=== PATIENT | female | born 1980 | race Caucasian/White ===

== ENCOUNTER 2017-12-05 12:57 | Emergency (ER) | payer OTHER ==
[2017-12-05 14:39] LABS: ABS Basophils 0 10^3/ul (0-0.2); ABS Eosinophils 0 10^3/ul (0-0.6); ABS Lymphocytes 1.2 10^3/ul (1.0-4.8); ABS Monocytes 0.8 10^3/ul (0-0.8); ABS Neutrophils 7.2 10^3/ul (1.5-7.7); ABS Nucleated RBC 0 10^3/ul; Eosinophil % 0.5 % (0-6); Hematocrit 41 % (35-47); Hemoglobin 13.6 g/dl (12.0-16.0); Lymphocyte % 13.4 % (25-47); Mean Corpuscular HGB Conc 34 g/dl (31-36); Mean Corpuscular Hemoglobin 28 pg (27-31); Mean Corpuscular Volume 82 fL (80-97); Mean Platelet Volume 9 um3 (7.4-10.4); Nucleated Red Blood Cells % 0; Platelet Count 208 10^3/ul (150-450); Red Blood Count 4.93 10^6/ul (4.0-5.4); Red Cell Distribution Width 14 % (10.5-15); White Blood Count 9.3 10^3/ul (3.5-10.8)
[2017-12-05 14:56] LABS: EGFR Non-African American 60.3 (>60)
[2017-12-05 15:24] LABS: Urine Appearance Cloudy; Urine Blood 3+ (Negative); Urine Color Amber; Urine Ketones Trace (Negative); Urine Protein 2+(100 mg/dL) (Negative); Urine Specific Gravity 1.044 (1.010-1.030); Urine Urobilinogen Negative (Negative)
--- NOTE | 2017-12-05 16:07 | RAD ---
Indication: RIGHT adnexal tenderness. Vaginal bleeding. Comparison: May 12, 2008 Technique: Transvaginal technique pelvic ultrasound. Report: Unremarkable 7.2 x 4.9 x 6.1 cm anteverted uterus with 5.5 mm endometrium. Negative for free pelvic fluid. 2.8 x 2.4 x 2.9 cm RIGHT ovary with documented vascular flow is remarkable for small follicles only. 3.4 x 3.0 x 3.0 cm LEFT ovary with documented vascular flow is remarkable for a 2.3 x 1.2 x 2.5 cm well-circumscribed cyst with a reticulated internal architecture pattern devoid of intrinsic vascularity most consistent with a hemorrhagic cyst. No visualized extra ovarian adnexal region lesions evident. IMPRESSION: 1. No RIGHT adnexal region lesions evident. 2. Low suspicion 2.5 cm maximum dimension hemorrhagic cyst of the LEFT ovary. 3. Normal endometrium thickness. 4. Negative for free fluid.
--- NOTE | 2017-12-05 16:15 | RAD ---
Indication: RIGHT upper quadrant pain. Comparison: March 23, 2014 ultrasound. Technique: RIGHT upper quadrant ultrasound. Report: Appropriate direction flow documented in the portal and hepatic veins. 22.7 cm liver is increased in echogenicity. Negative for focal hepatic lesions. Negative for intrahepatic biliary dilatation. 3.2 mm common bile duct. Adequately distended gallbladder with normal 2.4 mm wall is without pathologic finding. Negative for sonographic Howard's sign. Unremarkable visualized pancreas. Negative for ascites. 13.3 x 7.0 x 4.8 cm RIGHT kidney is unremarkable. IMPRESSION: 1. No evidence for gallbladder pathology. 2. Enlarged liver with fatty infiltration.
[2017-12-05] MEDS ORDERED: Ketorolac INJ* 30 MG/ML 1 ML VIAL IV PUSH ONE (16:34)
[2017-12-05] MEDS ORDERED: Morphine INJ* 4 MG/ML 1 ML CARPUJECT IV ONE (16:34)
--- NOTE | 2017-12-05 17:20 | RAD ---
INDICATION: RIGHT flank pain. Hematuria. Nausea. COMPARISON: Pelvic ultrasound of the same date. TECHNIQUE: Multidetector CT images were obtained from the lung bases to the ischial tuberosities. Evaluation of the viscera is limited without IV contrast. Multiplanar reformation. REPORT: Unremarkable visualized inferior thorax. 24 cm cephalocaudal liver is diffusely decreased in density consistent with fatty infiltration. No CT abnormality of the gallbladder. Negative for biliary dilatation. Unremarkable pancreas. 20 cm cephalocaudal enlarged spleen. Negative for CT abnormality of the upper GI, small bowel, infra cecal appendix. Mild colonic diverticulosis without findings of diverticulitis. Negative for ascites or free air. Small fat-containing umbilical hernia without inflammatory change. Normal adrenal glands. Unremarkable unenhanced kidneys and nondilated ureters. Largely decompressed urinary bladder limiting assessment without gross abnormality. Unremarkable CT appearance of the anteverted uterus and adnexal regions. Low suspicion calcification at the RIGHT pelvis. Negative for lymphadenopathy. Normal diameter abdominal aorta and iliac arteries. Physiologic distention of the IVC. Negative for suspicious osseous lesions. IMPRESSION: 1. Hepatomegaly with hepatosteatosis. 2. Splenomegaly. 3. Negative for obstructive uropathy. 4. Mild colonic diverticulosis without findings of diverticulitis.
[2017-12-05] MEDS ORDERED: Sulfamethox/Trimethoprim DS 800/160* TAB PO ONE (17:37)
[2017-12-05] MEDS: oxyCODONE/Acetamin 5/325 MG* TAB PO ONE ×2 (17:45→17:46)
[2017-12-05 18:28] VITALS: BP 147/86
--- NOTE | 2017-12-05 22:24 | ED ---
Cathy Burgos Julia, scribed for Gucci Salazar MD on 12/05/17 at 1412 . Abdominal Pain/Female - HPI Summary HPI Summary: This patient is a 36 year old F presenting to [facility] accompanied by with a chief complaint of RLQ abdominal pain since 13:00. The patient rates the pain 5/10 in severity. Patient reports fatigue, fever, nausea, sore throat, and vaginal bleeding characterized as spotting. Patient denies loose stool, vomiting, diarrhea, or urinary symptoms. Patient reports a fever of 102.7 taken at 10:00 at home this morning. - History of Current Complaint Chief Complaint: EDAbdPain Stated Complaint: ABD PAIN Time Seen by Provider: 12/05/17 14:06 Hx Obtained From: Patient Onset/Duration: Lasting Hours Timing: Constant Pain Intensity: 5 Pain Scale Used: 0-10 Numeric Location: Discrete At: RLQ Associated Signs and Symptoms: Positive: Other: - fatigue, fever, nausea, sore throat, and vaginal bleeding (spotting) Allergies/Adverse Reactions: Allergies Allergy/AdvReac Type Severity Reaction Status Date / Time Diphenhydramine Allergy Itching Verified 03/23/14 10:38 [From Benadryl] PMH/Surg Hx/FS Hx/Imm Hx Cardiovascular History: Reports: Hx Hypertension - with previous pregnancies History: Reports: Other Problems/Disorders - endometriosis Musculoskeletal History: Denies: Hx Rheumatoid Arthritis, Hx Osteoporosis - Immunization History Date of Tetanus Vaccine: up to date Infectious Disease History: No Infectious Disease History: Denies: Traveled Outside the [place] in Last 30 Days - Family History Known Family History: Positive: Cardiac Disease - maternal Negative: Diabetes - Social History Alcohol Use: None Hx Substance Use: No Substance Use Type: Reports: None Hx Tobacco Use: No Smoking Status (MU): Never Smoked Tobacco Have You Smoked in the Last Year: No Review of Systems Positive: Fever, Fatigue. Negative: Chills Negative: Erythema Positive: Sore Throat Negative: Chest Pain Negative: Shortness Of Breath, Cough Positive: Abdominal Pain, Nausea, Other - loose stool. Negative: Vomiting, Diarrhea Positive: other - vaginal bleeding ("spotting"). Negative: dysuria, hematuria Negative: Myalgia, Edema Negative: Rash Neurological: Other - negative - dizziness All Other Systems Reviewed And Are Negative: Yes Physical Exam - Summary Physical Exam Summary: Constitutional: Well-developed, Well-nourished, Alert. (-) Distressed Skin: Warm, Dry HENT: Normocephalic; Atraumatic Eyes: Conjunctiva normal Neck: Musculoskeletal ROM normal neck. (-) JVD, (-) Stridor, (-) Tracheal deviation Cardio: Rhythm regular, rate normal, Heart sounds normal; Intact distal pulses; The pedal pulses are 2+ and symmetric. Radial pulses are 2+ and symmetric. (-) Murmur Pulmonary/Chest wall: Effort normal. (-) Respiratory distress, (-) Wheezes, (-) Rales Abd: Soft, RLQ and RUQ Tenderness, (-) Distension, (-) Guarding, (-) Rebound Musculoskeletal: (-) Edema Lymph: (-) Cervical adenopathy Neuro: Alert, Oriented x3 Psych: Mood and affect Normal Triage Information Reviewed: Yes Vital Signs On Initial Exam: Initial Vitals Temp Pulse Resp BP Pulse Ox 97.5 F 117 20 152/114 95 12/05/17 12:59 12/05/17 12:59 12/05/17 12:59 12/05/17 12:59 12/05/17 12:59 Vital Signs Reviewed: Yes - Whigham Coma Scale Coma Scale Total: 15 Procedures - Procedure Summary Procedure Summary: Exam reveals no cervical motion, no concern for ovarian torsion, no adnexal tenderness. Arenza was present for this exam. Diagnostics - Vital Signs Vital Signs Temp Pulse Resp BP Pulse Ox 12/05/17 12:59 97.5 F 117 20 152/114 95 - Laboratory Result Diagrams: 12/05/17 14:30 12/05/17 14:30 Lab Statement: Any lab studies that have been ordered have been reviewed, and results considered in the medical decision making process. - CT A/P CT Interpretation Completed By: Radiologist - 1. Hepatomegaly with hepatosteatosis. 2. Splenomegaly. 3. Negative for obstructive uropathy. 4. Mild colonic diverticulosis without findings of diverticulitis. ED Physician has reviewed this report. - Additional Comments Diagnostic Additional Comments: Gallbladder US reveals: 1. No evidence for gallbladder pathology. 2. Enlarged liver with fatty infiltration. ED Physician has reviewed this report. Transvaginal US reveals 1. No RIGHT adnexal region lesions evident. 2. Low suspicion 2.5 cm maximum dimension hemorrhagic cyst of the LEFT ovary. 3. Normal endometrium thickness. 4. Negative for free fluid. ED Physician has reviewed this report. Re-Evaluation - Re-Evaluation 1st Re-Evaluation Time: 16:34 Change: Unchanged Comment: pain is still an 8/10 in intensity Abdominal Pain Fem Course/Dx - Diagnoses Provider Diagnoses: UTI (urinary tract infection) Discharge - Discharge Plan Condition: Stable Disposition: HOME Prescriptions: Naproxen TAB* [Naprosyn 250 mg TAB*] 500 mg PO Q8H PRN #15 tab PRN Reason: Pain - Moderate To Severe Sulfamethox/Trimethoprim DS* [Bactrim DS 800/160 TAB*] 1 tab PO BID #14 tab traMADol TAB* [Ultram*] 25 mg PO Q6HR PRN #15 tab MDD 4 PRN Reason: Pain - Moderate To Severe Patient Education Materials: Urinary Tract Infection in Women (ED) Referrals: Rubina Long NP [Primary Care Provider] - Additional Instructions: Patient will be discharged with prescription for Naproxen and Sulfamethox and instructed to follow up with PCP. The patient is agreeable with this plan. RETURN TO THE EMERGENCY DEPARTMENT FOR CHANGING OR WORSENING SYMPTOMS. The documentation as recorded by the Cathy serrano Julia accurately reflects the service I personally performed and the decisions made by , Gucci Salazar MD.
== END 2017-12-05 18:27 | disposition home or self-care (01) ==
LOC: ED 12:57
DX: N39.0 Urinary tract infection, site not specified (principal); N93.9 Abnormal uterine and vaginal bleeding, unspecified; R53.83 Other fatigue; R50.9 Fever, unspecified; R11.0 Nausea; J02.9 Acute pharyngitis, unspecified
CPT/HCPCS: 36415; 74176; 76705; 76830; 80053; 81003; 81015; 83605; 83690; 84702; 85025; 86140; 86308; 87480; 87491; 87510; 87591; 87661; 96374; 96375; 99283; A9270-GY; J1885

== ENCOUNTER 2017-12-06 09:46 | Emergency (ER) | payer OTHER ==
--- NOTE | 2017-12-06 10:59 | ED ---
Influenza-Like Illness - HPI Summary HPI Summary: 36 female presents to ED with complaints of sore throat, fever, fatigue, lethargy, and vomiting that has been ongoing for the past 2-3 days. Patient states she has been unable to eat and drink without feeling nauseous or vomiting. Has had 2 episodes of vomiting, one last night and one this morning. is concerned for dehydration. Fever was 104-101F when taken temporally at home [facility]. Given 600mg of ibuprofen and 1000mg of tylenol around 730am and fever improved, is 98.3 while in ED. Has taken her bactrim for UTI. Has not taken tramadol. Patient states she is not in any pain currently other than her sore throat and some body aches. Abdominal discomfort/"spasms" comes and goes and worsens with eating at times, similar to yesterdays ED visit complaints. States she did have CMV a few months back. Also had exposure to a cousin with mono. Has not had a bowel movement in last 3 days, did have loose stool in beginning of the week. Denies blood and recent antibiotic use, besides yesterdays bactrim that was prescribed. No other complaints. PMHx includes HTN and endometriosis. Denies cough, SOB, trouble breathing and chest pain. - History of Current Complaint Chief Complaint: EDAbdPain Time Seen by Provider: 12/06/17 10:25 Hx Obtained From: Patient, Family/Smeller - Onset/Duration: Sudden Onset, Lasting Days, Still Present Severity: Moderate Associated Signs & Symptoms: Fever, Myalgia, Sore Throat, Vomiting - Allergy/Home Medications Allergies/Adverse Reactions: Allergies Allergy/AdvReac Type Severity Reaction Status Date / Time Diphenhydramine Allergy Itching Verified 03/23/14 10:38 [From Grabiel] PMH/Surg Hx/FS Hx/Imm Hx Endocrine/Hematology History: Denies: Hx Diabetes Cardiovascular History: Reports: Hx Hypertension - with previous pregnancies History: Reports: Other Problems/Disorders - endometriosis Musculoskeletal History: Denies: Hx Rheumatoid Arthritis, Hx Osteoporosis - Surgical History Surgery Procedure, Year, and Place: x 3 - Immunization History Date of Tetanus Vaccine: up to date Immunizations Up to Date: Yes Infectious Disease History: No Infectious Disease History: Denies: Traveled Outside the [place] in Last 30 Days - Family History Known Family History: Positive: Cardiac Disease - maternal Negative: Diabetes - Social History Alcohol Use: None Hx Substance Use: No Substance Use Type: Reports: None Hx Tobacco Use: No Smoking Status (MU): Never Smoked Tobacco Have You Smoked in the Last Year: No Review of Systems Positive: Fever, Chills, Fatigue Positive: Sore Throat Cardiovascular: Negative Respiratory: Negative Positive: Abdominal Pain, Vomiting, Nausea Skin: Negative Positive: Weakness - lethargic / fatigued All Other Systems Reviewed And Are Negative: Yes Physical Exam Triage Information Reviewed: Yes Vital Signs On Initial Exam: Initial Vitals Temp Pulse Resp BP Pulse Ox 98.3 F 100 16 160/83 97 12/06/17 09:59 12/06/17 09:59 12/06/17 09:59 12/06/17 09:59 12/06/17 09:59 elevated BP noted, patient just took meds this am. asymptomatic. follow up with PCP for recheck in 2 weeks due to elevated reading. currently afebrile. Vital Signs Reviewed: Yes Appearance: Positive: No Pain Distress, Well-Nourished, Ill-Appearing Skin: Positive: Warm, Skin Color Reflects Adequate Perfusion, Dry. Negative: Cold, Cyanosis @, Pale, Erythema @ Head/Face: Positive: Normal Head/Face Inspection Eyes: Positive: Conjunctiva Clear ENT: Positive: Hearing grossly normal, Pharyngeal erythema - very erythematous, Nasal congestion, TMs normal, Tonsillar swelling - b/l, Tonsillar exudate - b/l , Uvula midline - no sign of peritonsillar abscess, patent airway Dental: Positive: Cervical Lymphadenopathy. Negative: Percussion Tenderness @ Neck: Positive: Supple, Nontender, No Lymphadenopathy Respiratory/Lung Sounds: Positive: Clear to Auscultation, Breath Sounds Present. Negative: Rales, Rhonchi, Wheezes Cardiovascular: Positive: Normal, RRR, Pulses are Symmetrical in both Upper and Lower Extremities. Negative: Murmur, Rub Abdomen Description: Positive: No Organomegaly, Soft, Other: - "discomfort" on palpation or LUQ/epigastric area. diffuse adipose tissue making exam difficult. Negative: Bruit, CVA Tenderness (R), CVA Tenderness (L), Distended, Guarding, McBurney's Point Tenderness, Peritoneal Signs, Pulsatile Mass Bowel Sounds: Positive: Present Pelvic Exam: Positive: other - preformed yesterday, no changes per patient, culture results pending Musculoskeletal: Positive: Normal, Strength/ROM Intact. Negative: Pain @ Neurological: Positive: Normal, Sensory/Motor Intact, Alert, Oriented to Person Place, Time, CN Intact II-III, Reflexes Intact, NV Bundle Intact Distally, Normal Gait - [place] Coma Scale Best Eye Response: 4 - Spontaneous Best Motor Response: 6 - Obeys Commands Best Verbal Response: 5 - Oriented Diagnostics - Vital Signs Vital Signs Temp Pulse Resp BP Pulse Ox 12/06/17 09:59 98.3 F 100 16 160/83 97 - Laboratory Lab Statement: Any lab studies that have been ordered have been reviewed, and results considered in the medical decision making process. Re-Evaluation - Re-Evaluation First Eval Re-Evaluation Time: 12:00 Change: Improved - feeling better after fluids, just tired and experiencing throat pain. updated on results of tests. patient still afebrile and normal vitals. agrees and understands plan. Flu Symptom Course/Dx - Course Course Of Treatment: influenza and mono spot obtained and negative. CT, US and labs preformed yesterday. UA, and vaginal cultures also obtained. Was diagnosed with UTI yesterday. All labs and imaging studies <24 hours ago were unremarkable. Patient taken appropriate meds and is afebrile with normal vitals while in ED. Denied any pain other than diffuse body aches, sore throat, fatigue and feeling of illness. was concerned for dehydration as patient was vomiting and has not been eating/drinking, patient give fluids while in ED. Appears to be suffering from pharyngitis due to PE findings and complaints. Will treat with amoxicillin, given first dose while in ED. Patient had negative strep culture 3 days ago when at [facility] and it was negative. Will send home with amox and zofran. encouraged fluids, rest, ibuprofen/tylenol and follow up. Aware of worsening signs and symptoms to watch out for and return if occur. Held off on repeat labs due to obtaining all labs and imaging <24 hours ago and symptoms consisting of fever, sore throat and body aches. Patient was in agreement with this plan and understood. NO other concerns at this time. Pending culture results obtained yesterday. no fever while in ED. normal vitals other than elevated BP that was encouraged follow up PCP for recheck already diagnosed HTN hasn't taken meds today. - Diagnoses Differential Diagnosis/HQI/PQRI: Positive: Influenza, Other - mono, CMV, abdominal pain, UTI, fever, pharyngitis, tonsillitis Provider Diagnoses: Fever, Tonsillitis with exudate, Pharyngitis Discharge - Discharge Plan Condition: Stable Disposition: HOME Prescriptions: Amoxicillin PO (*) [Amoxicillin 500 MG CAP*] 500 mg PO Q12H #19 cap Ondansetron ODT TAB* [Zofran 4 MG Odt TAB*] 4 mg PO Q6H PRN #10 tab.odt PRN Reason: Nausea Patient Education Materials: Pharyngitis (ED), Fever in Adults (ED), Tonsillitis (ED) Referrals: Rubina Long NP [Primary Care Provider] - Additional Instructions: Take prescribed antibiotic in addition to other medications as directed. Zofran for nausea. Salt water gargles. Keep good oral hygiene. Recommend refraining from sharing drinks. Chloraseptic spray to help soothe sore throat. Increase fluids and stick to a bland easy diet. Any new or worsening symptoms please seek medical attention promptly and return. Follow up with PCP within 2 days to ensure improvement.
[2017-12-06] MEDS: NS 0.9% 1000 ML* 2,000 ML IV ONE (11:15)
[2017-12-06] MEDS ORDERED: Amoxicillin PO (*) 500 MG CAP PO ONE (12:22)
[2017-12-06 13:26] VITALS: BP 168/89
== END 2017-12-06 13:25 | disposition home or self-care (01) ==
LOC: ED 09:46
DX: R50.9 Fever, unspecified (principal); J03.90 Acute tonsillitis, unspecified; R11.10 Vomiting, unspecified; R53.83 Other fatigue
CPT/HCPCS: 87502; 96360; 99282; A9270-GY

== ENCOUNTER 2020-02-06 13:25 | Emergency (ER) | payer MEDICAID, OTHER ==
[2020-02-06] MEDS ORDERED: Lidocaine PATCH 5%* 1 PATCH TRANSDERM ONE (13:35)
[2020-02-06] MEDS ORDERED: Cyclobenzaprine TAB* 10 MG PO ONE (13:35)
[2020-02-06] MEDS ORDERED: Ketorolac *IM* INJ* 60 MG/2 ML VIAL IM ONE (13:35)
--- NOTE | 2020-02-06 13:42 | ED ---
Back Pain - HPI Summary HPI Summary: This pt is a 39 Y/O F presenting to [facility] with a CC of low back pain that is rated a 10/10. She states that she tool APAP for her pain and did not take any narcotics. She states that she is more fatigued than usual. She denies any radiating pain, abdominal pain, headaches, SOB, N/V, and CP. She states that she felt searing pain while washing her hair and used Icy Hot immediately after the incident. She states that she went to lie down afterwards. She states that the pain is primarily located on her spine. She has no aggravating or alleviating factors. She has a PMHx of back spasms. - History of Current Complaint Chief Complaint: EDBackInjuryPain Stated Complaint: BACK PAIN PER EMS Time Seen by Provider: 02/06/20 13:34 Hx Obtained From: Patient Onset/Duration: Sudden Onset Onset/Duration: Still Present Timing: Constant Back Pain Location: Is Discrete @ - low back Severity Initially: Severe Severity Currently: Severe Pain Intensity: 10 Pain Scale Used: 0-10 Numeric Character: Burning Aggravating Symptom(s): Nothing Alleviating Symptom(s): Nothing Associated Signs And Symptoms: Positive: Negative - radiating pain, headaches, SOB, N/V, and CP. Negative: Abdominal Pain - Allergies/Home Medications Allergies/Adverse Reactions: Allergies Allergy/AdvReac Type Severity Reaction Status Date / Time diphenhydramine Allergy Itching Verified 02/06/20 17:00 [From Benradhika] Home Medications: Home Medications Vit W/ Ferrous Fumara [] 1 tab PO DAILY 03/23/14 [History Confirmed 03/23/14] Naproxen TAB* [Naprosyn 250 mg TAB*] 500 mg PO Q8H PRN #15 tab 12/05/17 [Rx] Sulfamethox/Trimethoprim DS* [Bactrim DS 800/160 TAB*] 1 tab PO BID #14 tab 04/17 [Rx] traMADol TAB* [Ultram*] 25 mg PO Q6HR PRN #15 tab MDD 4 12/05/17 [Rx] Amoxicillin PO (*) [Amoxicillin 500 MG CAP*] 500 mg PO Q12H #19 cap 12/06/17 [Rx ] Ondansetron ODT TAB* [Zofran 4 MG Odt TAB*] 4 mg PO Q6H PRN #10 tab.odt [Rx] Cyclobenzaprine TAB* [Flexeril 10 MG TAB*] 10 mg PO TID PRN #15 tab 02/06/20 [Rx ] Lidocaine PATCH 5%* [Lidoderm 5% Patch*] 1 patch TRANSDERM DAILY #14 patch 02/05 [Rx] predniSONE [Prednisone 20 MG TAB] 40 mg PO DAILY WITH MEAL #10 tablet 02/06/20 [ Rx] PMH/Surg Hx/FS Hx/Imm Hx Previously Healthy: Yes Endocrine/Hematology History: Denies: Hx Diabetes Cardiovascular History: Reports: Hx Hypertension - with previous pregnancies History: Reports: Other Problems/Disorders - endometriosis Musculoskeletal History: Denies: Hx Rheumatoid Arthritis, Hx Osteoporosis - Cancer History Hx Chemotherapy: No Hx Radiation Therapy: No - Surgical History Surgical History: Yes Surgery Procedure, Year, and Place: x 3 - Immunization History Date of Tetanus Vaccine: up to date Immunizations Up to Date: Yes Infectious Disease History: No Infectious Disease History: Denies: Traveled Outside the [place] in Last 30 Days - Family History Known Family History: Positive: Cardiac Disease - maternal Negative: Diabetes - Social History Occupation: Employed Full-time Lives: With Family Alcohol Use: None Hx Substance Use: No Substance Use Type: Reports: None Hx Tobacco Use: No Smoking Status (MU): Never Smoked Tobacco Have You Smoked in the Last Year: No Review of Systems Negative: Chest Pain Negative: Shortness Of Breath Negative: Abdominal Pain, Vomiting, Nausea Musculoskeletal: Other - low back pain Negative: Headache All Other Systems Reviewed And Are Negative: Yes Physical Exam - Summary Physical Exam Summary: VITAL SIGNS: Reviewed. GENERAL: Patient is a well-developed and morbidly obese woman who is lying comfortable in the stretcher. Patient is not in any acute respiratory distress. HEAD AND FACE: No signs of trauma. No ecchymosis, hematomas or skull depressions. No sinus tenderness. EYES: PERRLA, EOMI x 2, No injected conjunctiva, no nystagmus. EARS: Hearing grossly intact. Ear canals and tympanic membranes are within normal limits. MOUTH: Oropharynx within normal limits. NECK: Supple, trachea is midline, no adenopathy, no JVD, no carotid bruit, no c- spine tenderness, neck with full ROM. CHEST: Symmetric, no tenderness at palpation. LUNGS: Clear to auscultation bilaterally. No wheezing or crackles. CVS: Regular rate and rhythm, S1 and S2 present, no murmurs or gallops appreciated. ABDOMEN: Soft, non-tender. No signs of distention. No rebound, no guarding, and no masses palpated. Bowel sounds are normal. EXTREMITIES: FROM in all major joints, no edema, no cyanosis or clubbing. NEURO: Alert and oriented x 3. No acute neurological deficits. Speech is normal and follows commands. SKIN: Dry and warm. BACK: Tenderness to bilateral SI joints and midline. Triage Information Reviewed: Yes Vital Signs On Initial Exam: Initial Vitals Temp Pulse Resp BP Pulse Ox 98.2 F 98 16 151/83 100 02/06/20 13:30 02/06/20 13:30 02/06/20 13:30 02/06/20 13:30 02/06/20 13:30 Vital Signs Reviewed: Yes Procedures - Sedation Patient Received Moderate/Deep Sedation with Procedure: No Diagnostics - Vital Signs Vital Signs Temp Pulse Resp BP Pulse Ox 02/06/20 13:30 98.2 F 98 16 151/83 100 - Laboratory Lab Statement: Any lab studies that have been ordered have been reviewed, and results considered in the medical decision making process. Re-Evaluation - Re-Evaluation First Eval Re-Evaluation Time: 15:41 Change: Unchanged Comment: Pt states that she is still in pain. A back X-Ray will be ordered. Back Pain Course/Dx - Course Course Of Treatment: This pt is a 39 Y/O F presenting to [facility] with a CC of low back pain that is rated a 10/10. She states that she tool APAP for her pain and did not take any narcotics. She states that she is more fatigued than usual. She denies any radiating pain, abdominal pain, headaches, SOB, N/V, and CP. She states that she was washing her hair when she felt the pain. Her PE found that she has Tenderness to bilateral SI joints and midline. X-Ray: 1. Mild multilevel spondylosis as above. She will be discharged home with a Dx of low back strain - Diagnoses Provider Diagnoses: Low back strain Discharge ED - Sign-Out/Discharge Documenting (check all that apply): Patient Departure - discharge - Discharge Plan Condition: Good Disposition: HOME Prescriptions: Cyclobenzaprine TAB* [Flexeril 10 MG TAB*] 10 mg PO TID PRN #15 tab PRN Reason: Spasms - Back Lidocaine PATCH 5%* [Lidoderm 5% Patch*] 1 patch TRANSDERM DAILY #14 patch predniSONE [Prednisone 20 MG TAB] 40 mg PO DAILY WITH MEAL #10 tablet Patient Education Materials: Low Back Strain (ED), Chronic Back Pain (DC), Lower Back Exercises (ED) Forms: *Work Release Referrals: Rubina Long NP [Primary Care Provider] - 2 Days Additional Instructions: PLEASE FOLLOW UP WITH YOUR PRIMARY CARE PROVIDER IN THE NEXT 1-3 DAYS AND RETURN TO THE EMERGENCY DEPARTMENT FOR ANY NEW OR WORSENING SYMPTOMS. Please take the medications as directed and for the required time. - Billing Disposition and Condition Condition: GOOD Disposition: Home - Attestation Statements Document Initiated by Kayla: Yes Documenting Scribe: Keyur Mehta Provider For Whom Kayla is Documenting (Include Credential): Mic Cassidy MD Scribe Attestation: Keyur Burgos, scribed for Mic Cassidy MD on 02/06/20 at 1733. Scribe Documentation Reviewed: Yes Provider Attestation: The documentation as recorded by the Keyur serrano accurately reflects the service I personally performed and the decisions made by , Mic Cassidy MD Status of Kayla Document: Viewed
--- OUTSIDE RECORDS SUMMARY | 2020-02-06 13:43 | XMS REPORT | Continuity of Care Document ---
:1980 External Reference #:[id number] Author Name Rubina Long N.Augusto. (transmitted by agent of provider Shelbi Steinberg) Address [address], [place] [address] Care Team Providers Name Role Phone Mikaela Wilson MD - Internal Care Team Information Esthetician/Skin Therapist Medicine Problems Active Problems Provider Date Essential hypertension Rubina Long, N.P. Onset: 09/01/2015 Hyperlipidemia Rubina Long, N.P. Onset: 09/27/2011 Morbid obesity Rubina Long, N.P. Onset: 09/27/2011 Social History Type Date Description Comments Sex Unknown ETOH Use Currently consumes 0 - 1 per week alcohol Tobacco Use Start: Unknown End: Patient is a former Smoked rarely as Unknown smoker teenager Smoking Status Reviewed: 01/27/20 Patient is a former Smoked rarely as smoker teenager Exercise Exercises regularly 2 - 3 days - Walks Type/Frequency Allergies, Adverse Reactions, Alerts Active Allergies Reaction Severity Comments Date Benadryl 08/09/2010 Medications Active Medications SIG Qnty Indications Ordering Date Provider Ranitidine HCL 1 by mouth once a 180caps K21.9 Rubina Varn, 150mg Capsules day N.P. 9 Hydrochlorothiazide 1 by mouth every 90tabs R60.0 Rubina Varn, 25mg day N.P. 9 Tablets Loratadine take 1 tablet by 90tabs J30.9 Rubina Varn, 10mg Tablets mouth every day N.P. 8 as needed Nystatin apply twice daily 90gm L30.4 Rubina Skipn, 733293Rftl/GM Powder until rash clears N.P. 8 Breo Ellipta inhale 1 puff by 3units J45.30 Rubina Varn, 200-25mcg/Inh mouth every day N.P. 8 Aerosol Ramipril take 2 capsules 180caps I10 Rubina Valdiviaclara, 10mg Capsules by mouth every N.P. 6 day Ventolin HFA 1 to 2 24gm Rubina Long, 108(90Base) inhalations N.P. 4 mcg/Act Aerosol before exercise or every 4 hours as needed for asthma Aleve as needed Unknown 220mg Tablets 0 Womens Multivitamin E78.00 Unknown Tablets 0 Medications Administered in Office Medication SIG Qnty Indications Ordering Provider Date PPD Injection Nurse Visit A 07/21/2017 PPD Injection Nurse Visit A 10/02/2015 Immunizations CPT Code Status Date Vaccine Lot # [id number] Given 11/18/2006 Varicella (Chicken Pox) Immunization [id number] Given 11/18/2006 Varicella (Chicken Pox) Immunization Vital Signs Date Vital Result Comment 01/27/2020 8:47am Height 72 inches 6'0" Weight 352.00 lb Heart Rate 104 /min BP Systolic Sitting 145 mmHg BP Diastolic Sitting 99 mmHg Body Temperature 97.5 F O2 % BldC Oximetry 95 % BMI (Body Mass Index) 47.7 kg/m2 07/27/2019 9:14am Height 72 inches 6'0" Weight 350.25 lb Heart Rate 83 /min BP Systolic 130 mmHg BP Diastolic 84 mmHg Body Temperature 97.4 F O2 % BldC Oximetry 97 % BMI (Body Mass Index) 47.5 kg/m2 Results Description No Information Available Procedures Description No Information Available Medical Devices Description No Information Available Encounters Description No Information Available Assessments Date Code Description Provider 01/27/2020 M79.672 Pain in left foot Rubina Long, N.P. 01/27/2020 I10 Essential (primary) hypertension Rubina Long, N.P. 01/27/2020 M25.562 Pain in left knee Rubina Long N.P. Plan of Treatment Future Appointment(s):08/08/2020 8:40 am - Rubina [facility]01/27/2020 - Clara Manzano.P.M79.672 Pain in left footComments:I am referring you to a bilingual office assistant, Dr Miles for further evaluation.Referral:Adalberto Miles MD, [id number] Essential (primary) hypertensionComments:Your blood pressure is not in good control. I want you to increase your ramipril to 20 mg. Take 2 capsules daily.I would like you to monitor your blood pressure at home. If your readings at home are consistently higher than 140/90, please call the office.M25.562 Pain in left kneeComments: For your left knee pain I would encourage you to think about physical therapy. Functional Status Description No Information Available Mental Status Description No Information Available Referrals Refer to Reason for Referral Status Appt Date Adalberto Miles MD Patient with left foot pain referred Scheduled 03/2020 for evaluation and treatment. [address] [id number] [phone]
[2020-02-06 17:49] VITALS: BP 106/70
[2020-02-06] MEDS ORDERED: Lidocaine Patch REMOVE* 1 NOTE MISC SCH (21:00)
== END 2020-02-06 17:35 | disposition home or self-care (01) ==
LOC: ED 13:25
DX: S39.012A Strain of muscle, fascia and tendon of lower back, initial encounter (principal); M54.5 Low back pain; I10 Essential (primary) hypertension; Z79.51 Long term (current) use of inhaled steroids; X58.XXXA Exposure to other specified factors, initial encounter; Y92.9 Unspecified place or not applicable
CPT/HCPCS: 36415; 72100; 84702; 96372; 99282; A9270-GY; J1885; J7512